=== PATIENT | male | born 1965 | race Caucasian/White ===

== ENCOUNTER → 2017-09-21 | Outpatient (CLI) | payer MEDICAID ==
--- NOTE | 2017-09-22 12:18 | CPEEG ---
[f rep st] ELECTROENCEPHALOGRAM EEG. DATES OF STUDY: 09/21/2017. DATE OF INTERPRETATION: 09/22/2017. INTERPRETATION: Normal EEG during wakefulness and drowsiness. There were no potentially epileptogenic abnormalities present throughout the recording. REPORT: This EEG contains 10 Hz alpha activity to the posterior head regions. The background activity was normal and symmetric. There was no abnormal activation at rest, during photic stimulation or hyperventilation. The patient intermittently became drowsy during the study. There was no abnormal activation during drowsiness or during times of arousal. /[id number]/MODL MTDD
== END ==
LOC: FCPNEURO 12:58
PROVIDERS: ATTEND Psychiatry & Neurology Neurology
DX: R25.9 Unspecified abnormal involuntary movements (principal)

== ENCOUNTER 2019-01-29 10:42 | Emergency (ER) | payer MEDICAID ==
[2019-01-29] MEDS ORDERED: ALBUTEROL INH PREPACK MDI TAKEHOME ONE (11:38)
--- NOTE | 2019-01-29 11:38 | EDPHY ---
General - History Smoking Status: Never smoked Time Seen by Provider: 01/29/19 11:21 Narrative: CLINICAL IMPRESSION: Viral URI with cough ASSESSMENT/PLAN: 53-year-old homeless male presents to the emergency department with 4 days of URI symptoms with cough. No clinical signs of bacterial upper or lower respiratory disease. No respiratory distress, hypoxia, tachypnea. No underlying pulmonary disease. Patient was given an albuterol inhaler with spacer and instructions on how to use this. I advised PCP follow-up in the next 2-3 days. Warning signs return to ED sooner outlined and discharge. DIFFERENTIAL DX: Differential includes but not limited to acute bronchitis, viral URI with cough , influenza like syndrome, pneumonia, reactive airway disease ED PROCEDURES: See lab and/or imaging results below ED COURSE: 11:30 a.m.:. Patient seen and assessed by myself. No hypoxia, tachypnea, respiratory distress, or fever. No clinical signs of bacterial upper lower respiratory disease. CHIEF COMPLAINT: Sore throat and cough for 4 days HPI: 53-year-old male presents to the emergency department with 4 days of congestion , plugged ears, sore throat and cough. Patient reports being ill 3 weeks ago with URI symptoms for a week and a half, he was able to "kick that", but became ill again 4 days ago. He states he has been exposed to bronchitis. He reports no fevers. No underlying asthma or pulmonary disease. He does not smoke cigarettes but does use smokeless tobacco. He is homeless. He admits to using marijuana. He has been using airborne and Mucinex with some relief. He is here to make sure he does not have a bacterial infection. He has not seen a primary care doctor. PAST MEDICAL HISTORY: Prior Ortho injuries See triage summary and nurse notes for addition applicable history Pertinent Past Surgical History: Orthopedic surgery Family History: Noncontributory Social History: Smokes marijuana, does not abuse cigarette smoke REVIEW OF SYSTEMS: A full 10 point review of systems was negative except for those mentioned in HPI. PHYSICAL EXAM: General Appearance: Alert, oriented, appropriate, cooperative, NAD, well hydrated, non-toxic appearing, VSS, repeat heart rate on my assessment is 92, no hypoxia. HEENT: TMs are clear bilaterally no perforation or FB, no injection, no evidence of serous or mucopurulent otitis. Oropharynx clear is no erythema or exudates, no tonsillar hypertrophy or asymmetry. Dentition without abnormality. Eyes: PERRLA, no acute vision change, nystagmus, swelling, discharge, pain or photosensitivity. Conjunctiva pink, no pallor or injection Neck: Supple, nontender, no lymphadenopathy, no midline pain, FROM, no meningismus. Respiratory: There are no retractions, lungs are clear to auscultation. Cardiac: Regular rate and rhythm, no murmurs or gallops. Skin: Warm, dry, no rashes, no nodules on palpation. MEDICAL DECISION MAKING: Patient was seen independently. Secondary supervising physician at time of evaluation was: Dr. Moyer. Diagnosis: Viral URI with cough . New, requires workup Summary: See Assessment and Plan for summary of ED visit Patient Progress: Stable for discharge. (Bruno Milligan) Medical Decision Making: I did not see this patient while he was in the emergency department. However his care was discussed with the PA while the patient was in the department. I agree with treatment plan and management (Melvin Moyer) - Objective Vital Signs: Initial Vital Signs Temperature (C) 36.7 C 01/29/19 10:56 Heart Rate 104 H 01/29/19 10:56 Respiratory Rate 16 01/29/19 10:56 Blood Pressure 141/96 H 01/29/19 10:56 O2 Sat (%) 97 01/29/19 10:56 O2 Delivery Mode Room Air Allergies/Adverse Reactions: No Known Allergies Allergy (Verified 01/29/19 10:56) Medications Given: Discontinued Medications Albuterol Sulfate (Proventil Inh Prepack) 1 mdi TAKEHOME EDNOW ONE Stop: 01/29/19 11:39 Last Admin: 01/29/19 11:55 Dose: 1 mdi Departure - Departure Disposition: Home, Routine, Self-Care Clinical Impression: Viral URI with cough Condition: Good Instructions: Albuterol (By breathing), Viral Syndrome (ED) Additional Instructions: DISCHARGE INSTRUCTIONS FROM YOUR DOCTOR Thank you for visiting our emergency department today. You were treated by a physician mortgage loan assistant today and your case was reviewed with our ED Attending physician. Please keep in mind that discharge from the emergency department does not mean that there is nothing wrong - it simply means that we have not identified an emergency condition that requires further evaluation or treatment in the hospital. You should always plan to follow up with primary care for re- evaluation of your condition in the next 2-3 days. If you have been referred to a specialist, please call as soon as possible (today or tomorrow) to schedule your follow up appointment at the appropriate time. YOU HAVE NO CLINICAL SIGNS TO SUGGEST A BACTERIAL INFECTION REQUIRING ANTIBIOTICS TODAY. IN INHALER WITH A SPACER WAS GIVEN TODAY AND OUR NURSE SHOWED YOU HOW TO USE THIS. PLEASE USE THE INHALER, 2 PUFFS WITH SPACER EVERY 4 HR NEEDED FOR COUGH OR CHEST TIGHTNESS. PLEASE SEE A PRIMARY CARE DOCTOR IN THE NEXT 2-3 DAYS. A REFERRAL WAS GIVEN. STAY WELL-HYDRATED. CONTINUE USING AIRBORNE AND MUCUS RELIEF. GET PLENTY OF REST. RETURN TO THE ED FOR WORSENING COUGH, SHORTNESS OF BREATH, CHEST PAIN, HIGH FEVERS OR ANY OTHER CONCERN. People present with illnesses and injuries in different ways, and it is always possible that we have missed something. You may always return for re-evaluation if symptoms worsen or if they are not improving or if you develop new/different symptoms. Again, thank you for choosing our emergency department. We hope that you feel better. Referrals: NONE *PRIMARY CARE P,. [Primary Care Provider] - As per Instructions [facility],. [Clinic] - 2-3 days, call for appt.
[2019-01-29 12:03] VITALS: BP 140/90
== END 2019-01-29 12:03 | disposition home or self-care (01) ==
DX: J06.9 Acute upper respiratory infection, unspecified (principal); F12.90 Cannabis use, unspecified, uncomplicated; Z59.0 Homelessness